=== PATIENT | male | born 2000 | race Caucasian/White ===

== ENCOUNTER 2025-01-21 18:49 | Emergency (ER) | payer SELFPAY ==
[2025-01-21 18:58] VITALS: BP 179/93; PULSE 114; RESP 20; TEMP 36.7; O2SAT 99; BMI 34.9
--- NOTE | 2025-01-21 19:22 | EKG_ITS ---
[address] [id number] Test Date: 2025-01-21 Pat Name: Aidan Oneal Department: Room: Gender: Male Environmental Health Safety Engineer: VINEET : 2000 Requested By: Order Number: [id number] Reading MD: Anuel Seay MD Measurements Intervals [place] Rate: 66 P: 44 MD: 150 QRS: 67 QRSD: 102 T: 28 QT: 388 QTc: 406 Interpretive Statements Normal sinus rhythm with sinus arrhythmia Electronically Signed On 01-22-2025 7:40:41 PDT by Anuel Seay MD
--- NOTE | 2025-01-21 22:31 | PC.NURSE ---
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 Reports feeling similar to the last time with headache, weakness, tingling in fingers, feet feeling warm and pins/needles on bottom of feet and chest pain. Does report anxiety as well.
== END 2025-01-21 23:34 | disposition left against medical advice (07) ==
PROVIDERS: Emergency Provider Emergency Medicine
DX: R20.0 Anesthesia of skin (principal); I49.8 Other specified cardiac arrhythmias; F41.0 Panic disorder [episodic paroxysmal anxiety]
CPT/HCPCS: 82962; 93005; 99281